=== PATIENT | male | born 1995 | race Asian ===

== ENCOUNTER 2018-05-01 18:47 | Emergency (ER) | payer BC ==
[~2018-05-01] VITALS: Ht 162.6 cm; Wt 70.3 kg
[2018-05-01 19:04] VITALS: BP 154/69
[2018-05-01] MEDS ORDERED: ACETAMINOPHEN 500 MG TABLET PO ONE (19:30)
[2018-05-01] MEDS ORDERED: DEXAMETHASONE 4 MG TABLET PO ONE (19:30)
[2018-05-01 19:44] LABS: INFLUENZA A PATIENT NEGATIVE (NEGATIVE); INFLUENZA B PATIENT NEGATIVE (NEGATIVE)
[2018-05-01] MEDS ORDERED: AMOX1TAB61 PO (20:07)
--- NOTE | 2018-05-01 20:07 | PHYS DOC ---
Past Medical History Past Medical History: No Pertinent History Past Surgical History: No Surgical History Alcohol Use: None Drug Use: None Adult General Chief Complaint Chief Complaint: SORE THROAT HPI HPI 23 year old male presents with report of sore throat, nasal congestion, and cough x 2-3 days. Reports associated subjective fever/chills. Denies known sick contact. Review of Systems Review of Systems Constitutional: Reports subjective fever and chills [] Eyes: Denies change in visual acuity, redness, or eye pain [] HENT: Reports nasal congestion and sore throat [] Respiratory: Reports cough; denies shortness of breath [] Cardiovascular: Denies chest pain or palpitations GI: Denies abdominal pain, nausea, vomiting, or diarrhea [] : Denies dysuria or hematuria [] Musculoskeletal: Denies back pain or joint pain [] Integument: Denies rash or skin lesions [] Neurologic: Denies headache, focal weakness or sensory changes [] Complete systems were reviewed and found to be within normal limits, except as documented in this note. Current Medications Current Medications Current Medications Medications (Trade) Dose Ordered Sig/Zuleima Start Time Stop Time Status Last Admin Dose Admin Acetaminophen (Tylenol) 500 mg 1X ONCE 05/01/18 19:30 05/01/18 19:31 DC 05/01/18 19:18 500 MG Dexamethasone (Decadron) 10 mg 1X ONCE 05/01/18 19:30 05/01/18 19:31 DC 05/01/18 19:18 10 MG Allergies Allergies Allergies Coded Allergies Type Severity Reaction Last Updated Verified No Known Drug Allergies 05/01/18 No Physical Exam Physical Exam Constitutional: Well developed, well nourished, no acute distress, non-toxic appearance. [] HENT: Normocephalic, atraumatic, bilateral TMs normal, oropharynx moist, no oral exudates, pharynx erythematous, nasal congestion noted Eyes: Conjunctiva normal, no discharge. [] Neck: Normal range of motion, no tenderness, supple, no meningeal signs Cardiovascular: Heart rate regular rhythm, no murmur [] Lungs & Thorax: Bilateral breath sounds clear to auscultation, no wheezing/ rales/rhonchi Skin: Warm, dry, no erythema, no rash. [] Extremities: No tenderness, ROM intact, no edema. [] Neurologic: Alert and oriented X 3, no focal deficits noted. [] Psychologic: Affect normal, judgement normal, mood normal. [] Current Patient Data Vital Signs Vital Signs Date Time Temp Pulse Resp B/P (MAP) Pulse Ox O2 Delivery O2 Flow Rate FiO2 05/01/18 19:04 100.6 104 16 154/69 (97) 96 Room Air 100.6 Lab Values Laboratory Tests Test 05/01/18 19:09 Influenza Type A Antigen Negative (NEGATIVE) Influenza Type B Antigen Negative (NEGATIVE) Group A Streptococcus Rapid Negative (NEGATIVE) EKG EKG [] Radiology/Procedures Radiology/Procedures [] Course & Med Decision Making Course & Med Decision Making Pertinent Lab studies reviewed. (See chart for details) Patient presents with sore throat and subjective fever/chills. Reports associated cough and nasal congestion. Rapid influenza negative. Rapid strep also negative. Fever addressed. Symptomatic treatment provided with oral steroid. Rx for empiric antibiotics given with instructions for watch and wait. Patient stable for discharge home with outpatient follow-up with PCP. Discussed findings and plan with patient, who acknowledges understanding and agreement. Dragon Disclaimer Dragon Disclaimer This electronic medical record was generated, in whole or in part, using a voice recognition dictation system. Departure Departure Impression: Primary Impression: Pharyngitis Disposition: 01 HOME, SELF-CARE Condition: STABLE Referrals: NO PCP (PCP) Patient Instructions: Viral and Bacterial Pharyngitis, [id number] Additional Instructions: Hold antibiotics for 48 hours. If symptoms worsen or for fever > 100.3 F after 48 hours then start antibiotics as prescribed. Scripts Amoxicillin/Potassium Clav (AUGMENTIN 875-125 TABLET) 1 Each Tablet 1 TAB PO BID, #14 TAB Prov: RENNY LEMOS DO 05/01/18 Problem Qualifiers Primary Impression: Pharyngitis Pharyngitis/tonsillitis etiology: unspecified etiology Qualified Codes: J02.9 - Acute pharyngitis, unspecified RENNY LEMOS DO May 01, 2018 20:07
== END 2018-05-01 20:23 | disposition home or self-care (01) ==
LOC: ER 18:47
DX: J02.9 Acute pharyngitis, unspecified (principal); R09.81 Nasal congestion
CPT/HCPCS: 87070; 87804; 87880; 99283; J8540

== ENCOUNTER 2018-10-31 10:13 | Emergency (ER) | payer BC ==
[~2018-10-31] VITALS: Ht 152.4 cm; Wt 68.0 kg
[~2018-10-31 10:13] MED LIST: AMOX1TAB61 PO
[2018-10-31] MEDS ORDERED: IV NORMAL SALINE 1000ML BAG 1,000 ML IV ONE (10:27)
[2018-10-31] MEDS ORDERED: METOCLOPRAMIDE 10 MG TABLET. PO ONE (10:30)
[2018-10-31] MEDS ORDERED: diphenhydrAMINE 50 MG/ML VIAL IVP ONE (10:30)
--- NOTE | 2018-10-31 10:50 | PHYS DOC ---
Past Medical History Past Medical History: No Pertinent History Past Surgical History: No Surgical History Alcohol Use: None Drug Use: None Adult General Chief Complaint Chief Complaint: HEADACHE HPI HPI 23-year-old male presenting the emergency department today with headache that is a throbbing moderate pain this started within the past 24 hours. He has felt subjective temperature at home however did not take his temperature. He is afebrile here. He took ibuprofen a few hours before coming in and his headache is improving currently. The pain is a nonradiating pain. He denies neck stiffness or nuchal rigidity. He denies any recent sick contacts. Immunizations are up-to-date. Review of systems is negative for vision changes numbness weakness or tingling of the extremities. He denies nuchal rigidity neck stiffness. He denies chest pain shortness of breath. He feels mildly nauseous did not vomit prior to arri santos. All other review of systems is negative. ED course: 23-year-old male presenting with a headache with subjective temperature at home. Patient has mild tachycardia here. Temperature 99.5. On examination normal range of motion and neck without nuchal rigidity. Negative Brudzinski's sign. Negative Kernig sign. Well-appearing individual. I ordered a CT of the head with blood work. Patient is refusing CAT scan. Patient received IV fluids with reglan and Benadryl. He is feeling better. I explained to him that his white blood cell count was elevated which can be a sign of infection. I requested to do the CAT scan and a lumbar puncture to exclude bacterial meningitis from the differential diagnosis. Patient understands the risk of disability chronic suffering and or comatose. He understands the risks and benefits of the procedure and is refusing to do anymore diagnostic testing at this time. He would like to sign out AMA. I offered alternatives including transfer to another facility or referral to another type of specialist for further investigation which patient refuses. The patient will sign out AMA to follow-up with his primary care physician as soon as possible. The patient has medical decision making capacity and understands. We will use a blue phone seismic interpreter to help explain reasons for testing better, but pt is refusing further care. Current Medications Current Medications Current Medications Medications (Trade) Dose Ordered Sig/Zuleima Start Time Stop Time Status Last Admin Dose Admin Diphenhydramine HCl (Benadryl) 25 mg 1X ONCE 10/31/18 10:30 10/31/18 10:31 DC 10/31/18 10:45 25 MG Metoclopramide HCl (Reglan) 10 mg 1X ONCE 10/31/18 10:30 10/31/18 10:31 DC 10/31/18 10:45 10 MG Sodium Chloride 1,000 ml @ 1,000 mls/hr Q1H ONCE 10/31/18 10:27 10/31/18 11:26 10/31/18 10:46 1,000 MLS/HR Allergies Allergies Allergies Coded Allergies Type Severity Reaction Last Updated Verified No Known Drug Allergies 05/01/18 No Physical Exam Physical Exam Constitutional: Well developed, well nourished, no acute distress, non-toxic appearance. [] HENT: Normocephalic, atraumatic, bilateral external ears normal, oropharynx moist, no oral exudates, nose normal. [] Eyes: PERRLA, EOMI, conjunctiva normal, no discharge. [] Neck: Normal range of motion, no tenderness, supple, no stridor. [] Cardiovascular: mild tachy, regular rhythm, no murmur [] Lungs & Thorax: Bilateral breath sounds clear to auscultation [] Abdomen: Bowel sounds normal, soft, no tenderness, no masses, no pulsatile masses. [] Skin: Warm, dry, no erythema, no rash. [] Back: No tenderness, no CVA tenderness. [] Extremities: No tenderness, no cyanosis, no clubbing, ROM intact, no edema. [] Neurologic: Alert and oriented X 3, normal motor function, normal sensory function, no focal deficits noted. [] Psychologic: Affect normal, judgement normal, mood normal. [] Current Patient Data Vital Signs Vital Signs Date Time Temp Pulse Resp B/P (MAP) Pulse Ox O2 Delivery O2 Flow Rate FiO2 10/31/18 10:20 99.5 105 18 131/76 (94) 97 99.5 Lab Values Laboratory Tests Test 10/31/18 10:35 White Blood Count 16.0 x10^3/uL (4.0-11.0) H Red Blood Count 5.66 x10^6/uL (4.30-5.70) Hemoglobin 16.0 g/dL (13.0-17.5) Hematocrit 46.8 % (39.0-53.0) Mean Corpuscular Volume 83 fL (79-100) Mean Corpuscular Hemoglobin 28 pg (25-35) Mean Corpuscular Hemoglobin Concent 34 g/dL (31-37) Red Cell Distribution Width 12.9 % (11.5-14.5) Platelet Count 152 x10^3/uL (140-400) Neutrophils (%) (Auto) 82 % (31-73) H Lymphocytes (%) (Auto) 10 % (24-48) L Monocytes (%) (Auto) 7 % (0-9) Eosinophils (%) (Auto) 0 % (0-3) Basophils (%) (Auto) 1 % (0-3) Neutrophils # (Auto) 13.2 x10^3/uL (1.8-7.7) H Lymphocytes # (Auto) 1.6 x10^3/uL (1.0-4.8) Monocytes # (Auto) 1.1 x10^3/uL (0.0-1.1) Eosinophils # (Auto) 0.0 x10^3/uL (0.0-0.7) Basophils # (Auto) 0.1 x10^3/uL (0.0-0.2) Platelet Estimate Pending Sodium Level 139 mmol/L (136-145) Potassium Level 3.5 mmol/L (3.5-5.1) Chloride Level 102 mmol/L (98-107) Carbon Dioxide Level 24 mmol/L (21-32) Anion Gap 13 (6-14) Blood Urea Nitrogen 14 mg/dL (8-26) Creatinine 1.1 mg/dL (0.7-1.3) Estimated GFR (Cockcroft-Gault) 81.6 BUN/Creatinine Ratio 13 (6-20) Glucose Level 122 mg/dL (70-99) H Calcium Level 8.8 mg/dL (8.5-10.1) Total Bilirubin 0.7 mg/dL (0.2-1.0) Aspartate Amino Transferase (AST) 21 U/L (15-37) Alanine Aminotransferase (ALT) 26 U/L (16-63) Alkaline Phosphatase 85 U/L (46-116) Total Protein 8.3 g/dL (6.4-8.2) H Albumin 3.9 g/dL (3.4-5.0) Albumin/Globulin Ratio 0.9 (1.0-1.7) L Laboratory Tests 10/31/18 10:35 Laboratory Tests 10/31/18 10:35 EKG EKG [] Radiology/Procedures Radiology/Procedures [] Course & Med Decision Making Course & Med Decision Making Pertinent Labs and Imaging studies reviewed. (See chart for details) [] Dragon Disclaimer Dragon Disclaimer This electronic medical record was generated, in whole or in part, using a voice recognition dictation system. Departure Departure Impression: Primary Impression: Headache Disposition: 07 AGAINST MEDICAL ADVICE Condition: GUARDED Referrals: NO PCP (PCP) Patient Instructions: General Headache Without Cause Additional Instructions: Thank you for allowing us to participate in your care today. Return to the emergency department you have any new or worsening symptoms, or if you are concerned for any reason. Return to emergency department if you have any new or concerning symptoms including but not limited to fever, chills, nausea, vomiting, intractable pain, any new rashes, chest pain, shortness of air, uncontrolled bleeding, difficulty breathing, and/or vision loss. Follow up with your primary care physician within 1-2 days. Call your Primary Doctor tomorrow and inform them of your visit today. If you do not have a primary care provider we are happy to provide you with a list of our primary care providers contact information. If at any time you change your mind and would like to continue investigation t ear headache you can return to the closest emergency department. This condition should be evaluated by your primary care physician and any recommended consulting services for continued management within 2 days after discharge. If at any time, you are having difficulty getting into your primary care doctor or a specialist, return to the emergency department. CRISTIAN LANDERS MD Oct 31, 2018 10:50
[2018-10-31 11:00] LABS: BASO # 0.1 x10^3/uL (0.0-0.2); BASO % 1 % (0-3); EOS % 0 % (0-3); HEMATOCRIT 46.8 % (39.0-53.0); LYMPH # 1.6 x10^3/uL (1.0-4.8); LYMPH % 10 % (24-48); MEAN CORPUSCULAR HEMOGLOBIN 28 pg (25-35); MEAN CORPUSCULAR HGB CONC 34 g/dL (31-37); MEAN CORPUSCULAR VOLUME 83 fL (79-100); MONO # 1.1 x10^3/uL (0.0-1.1); MONO % 7 % (0-9); NEUT # 13.2 x10^3/uL (1.8-7.7); NEUT % 82 % (31-73); PLATELET COUNT 152 x10^3/uL (140-400); RED BLOOD COUNT 5.66 x10^6/uL (4.30-5.70); RED CELL DISTRIBUTION WIDTH 12.9 % (11.5-14.5)
[2018-10-31 11:11] LABS: CALCIUM 8.8 mg/dL (8.5-10.1); CREATININE 1.1 mg/dL (0.7-1.3); GFR 81.6; POTASSIUM 3.5 mmol/L (3.5-5.1)
[2018-10-31 11:16] LABS: ALBUMIN 3.9 g/dL (3.4-5.0); ALBUMIN/GLOBULIN RATIO 0.9 (1.0-1.7); TOTAL BILIRUBIN 0.7 mg/dL (0.2-1.0); TOTAL PROTEIN 8.3 g/dL (6.4-8.2)
[2018-10-31 11:40] VITALS: BP 120/78
[2018-10-31 12:55] LABS: % BASOS 1 % (0-3); % LYMPHS 12 % (24-48); % MONOS 7 % (0-10); % SEGS 80 % (35-66); PLT ESTIMATE ADEQUATE (ADEQUATE)
== END 2018-10-31 11:45 | disposition left against medical advice (07) ==
LOC: ER 10:13
DX: R51 Headache (principal); R50.9 Fever, unspecified
CPT/HCPCS: 36415; 80053; 85007; 85025; 96374; 99285; J1200; J7030; J8597

== ENCOUNTER 2020-08-17 11:06 | Emergency (ER) | payer BC ==
[~2020-08-17] VITALS: Ht 162.6 cm; Wt 70.0 kg
[2020-08-17] MEDS ORDERED: IV NORMAL SALINE 1000ML BAG 1,000 ML IV SCH (11:30)
[2020-08-17] MEDS ORDERED: ONDANSETRON PF 4 MG/2 ML VIAL. IVP ONE (11:30)
[2020-08-17] MEDS ORDERED: IV NORMAL SALINE 1000ML BAG 1,000 ML IV ONE (11:30)
[2020-08-17] MEDS ORDERED: KETOROLAC 30 MG/ML VIAL. IVP ONE (11:30)
[2020-08-17] MEDS ORDERED: ACETAMINOPHEN 500 MG TABLET PO ONE (11:30)
--- NOTE | 2020-08-17 11:41 | PHYS DOC ---
Past Medical History Past Medical History: No Pertinent History Past Surgical History: No Surgical History Smoking Status: Never Smoker Alcohol Use: None Drug Use: None General Adult EDM: Chief Complaint: FEVER HPI: HPI: Patient is a 25 year old male who presents with 4 days of diarrhea, headache, fever, chills. Denies abdominal pain, chest pain, shortness of air, cough, recent travel, recent antibiotics, dizziness, headache, abdominal distention, urinary symptoms, back pain, vomiting, nausea. He states he last took Tylenol at 3:00 this morning he took ibuprofen at 2200 last night. Patient speaks Albanian. He has had both Covid shots but he cannot remember which one it was. He denies any past medical history. Review of Systems: Review of Systems: Constitutional: + fever or chills. [] Eyes: Denies change in visual acuity. [] HENT: Denies nasal congestion or sore throat. [] Respiratory: Denies cough or shortness of breath. [] Cardiovascular: Denies chest pain or edema. [] GI: Denies abdominal pain, nausea, vomiting, bloody stools or +diarrhea. [] : Denies dysuria. [] Musculoskeletal: Denies back pain or joint pain. [] Integument: Denies rash. [] Neurologic: +headache, denies focal weakness or sensory changes. [] Endocrine: Denies polyuria or polydipsia. [] Lymphatic: Denies swollen glands. [] Psychiatric: Denies depression or anxiety. [] Heart Score: C/O Chest Pain: No Risk Factors: Risk Factors: DM, Current or recent (<one month) smoker, HTN, HLP, family history of CAD, obesity. Risk Scores: Score 0 - 3: 2.5% MACE over next 6 weeks - Discharge Home Score 4 - 6: 20.3% MACE over next 6 weeks - Admit for Clinical Observation Score 7 - 10: 72.7% MACE over next 6 weeks - Early Invasive Strategies Current Medications: Current Medications Medications (Trade) Dose Ordered Sig/Zuleima Start Time Stop Time Status Last Admin Dose Admin Acetaminophen (Tylenol) 1,000 mg 1X ONCE 08/17/20 11:30 08/17/20 11:33 DC Ketorolac Tromethamine (Toradol 30mg Vial) 30 mg 1X ONCE 08/17/20 11:30 08/17/20 11:33 DC Ondansetron HCl (Zofran) 4 mg 1X ONCE 08/17/20 11:30 08/17/20 11:33 DC Sodium Chloride 1,000 ml @ 1,000 mls/hr 1X ONCE 08/17/20 11:30 08/17/20 12:29 Allergies: Allergies: Allergies Coded Allergies Type Severity Reaction Last Updated Verified No Known Drug Allergies 05/01/18 No Physical Exam: PE: Constitutional: Well developed, well nourished, no acute distress, non-toxic appearance. [] HENT: Normocephalic, atraumatic, bilateral external ears normal, oropharynx moist, no oral exudates, nose normal. [] Eyes: PERRLA, EOMI, conjunctiva normal, no discharge. [] Neck: Normal range of motion, no tenderness, supple, no stridor. [] Cardiovascular:Heart rate tachycardic regular rhythm, no murmur [] Lungs & Thorax: Bilateral breath sounds clear to auscultation [] Abdomen: Bowel sounds normal, soft, no tenderness, no masses, no pulsatile masses. [] Skin: Warm, dry, no erythema, no rash. [] Back: No tenderness, no CVA tenderness. [] Extremities: No tenderness, no cyanosis, no clubbing, ROM intact, no edema. [] Neurologic: Alert and oriented X 3, normal motor function, normal sensory function, no focal deficits noted. [] Psychologic: Affect normal, judgement normal, mood normal. [] EKG: EKG: [[address] Sánchez is sinus tachycardia no STEMI Radiology/Procedures: Radiology/Procedures: [] Impression: [facility] [address] [place], [place] [id number] IMAGING REPORT Signed PATIENT: ANA PEREZ ACCOUNT: [id number] : 1995 LOCATION: ER AGE: 25 SEX: M EXAM STATUS: REG ER ORD. PHYSICIAN: IBAN NEWTON APRN REASON: fever, tachycardia PROCEDURE: PORTABLE CHEST 1V INDICATION: Reason: fever, tachycardia / Spl. Instructions: / History: COMPARISON: None. FINDINGS: Single view of chest obtained. No focal airspace consolidation. Cardiomediastinal contour unremarkable. No acute osseous abnormality. IMPRESSION: * No focal airspace consolidation or edema. Electronically signed by: Sommer Dejesus MD (08/17/2020 12:14 PM) [id number] DICTATED and SIGNED BY: SOMMER DEJESUS MD DATE: 08/17/20 [id number] [facility] [address] [place] [address] IMAGING REPORT Signed PATIENT: ANA PEREZ ACCOUNT: [id number] : 1995 LOCATION: ER AGE: 25 SEX: M EXAM STATUS: REG ER ORD. PHYSICIAN: IBAN NEWTON APRN REASON: fever, diarrhea PROCEDURE: CT ABD PELV W/ IV CONTRST ONLY Exam: CT abdomen/pelvis with intravenous contrast Indication: Fever, diarrhea Comparison: None Technique: Helical CT imaging performed of the abdomen and pelvis after the intravenous administration of Omnipaque 300 contrast. Sagittal and coronal reformats were obtained. One or more of the following individualized dose reduction techniques were utilized for this examination: 1. Automated exposure control 2. Adjustment of the mA and/or kV according to patient size 3. Use of iterative reconstruction technique. Findings: There is mild motion artifact. Lower chest: Unremarkable. Liver: No focal liver lesion. Gallbladder/Biliary Tree: Normal. Pancreas: Normal. Spleen: Normal. Adrenal Glands: Normal. Kidneys/Ureters/Bladder: Normal. No hydronephrosis. Ureters and bladder are normal. Reproductive Organs: Normal. Stomach, small bowel, and colon: Stomach is normal. There is no small bowel obstruction. The appendix is normal. Motion artifact mildly limits evaluation of colon but there is no definite wall thickening or other acute abnormality. Vasculature: Abdominal aorta is normal in caliber. Lymph Nodes: There are multiple prominent mesenteric and retroperitoneal lymph nodes. For example, there is a prominent 1 cm short axis ileocolic lymph node (image 56, series 2). There are numerous small periaortic lymph nodes. Peritoneum and retroperitoneum: No free fluid or free air. Bones: No acute osseous abnormality. Impression: 1. No acute abnormality. 2. Multiple prominent mesenteric and retroperitoneal lymph nodes, greatest in the right lower quadrant. This is likely reactive, however follow-up CT of abd omen and pelvis could be obtained in 6 months to ensure stability. Electronically signed by: Nini Laughlin MD (08/17/2020 1:13 PM) [id number] DICTATED and SIGNED BY: NINI LAUGHLIN MD DATE: 08/17/20 [id number] 0 Course & Med Decision Making: Course & Med Decision Making Pertinent Labs and Imaging studies reviewed. (See chart for details) COVID-19 CRITERIA: The patient was evaluated during the global COVID-19 [facility], and that diagnosis was suspected/considered upon their initial presentation. Their evaluation, treatment and testing was consistent with current guidelines for patients who present with complaints or symptoms that may be related to COVID-19. See HPI. Alert and oriented x4. Panamanian speaking. Clip Wrapper phone is used. Speaks in full clear sentences. Skin pink warm and dry. He is tachycardic. His temp is 103. Lungs are clear to auscultate in all lobes. Abdomen is soft and nontender. Patient is given Toradol and Tylenol in the ED. He is given 2 L normal saline fluid. After fluid patient is still tachycardic. I have Covid tested in. I have also started Zosyn on the patient. I have ordered a stool culture. I had discussed admission with the patient and and his diagnosis. Patient states that he understands that he risk going home and dying and or disability. He states he understands his illness is severe. He states that he still wants to go home. He states that he will sign out AMA. Patient is still tachycardic. He has received Zosyn and 2 L of normal saline. I have spoken to Dr. Masters and he stated that he was going to come down and speak with the patient prior to the patient leaving. After Dr. Masters spoke to the patient the patient is still leaving AMA. [] Karly Disclaimer: Karly Disclaimer: This electronic medical record was generated, in whole or in part, using a voice recognition dictation system. COVID-19 Patient Risks: Age 65 or older: No Sign of co-morbidity: No Exp to person + for COVID: No Exp to PUI: No Travel from affected area: No Lower respiratory symptoms: No Fever: Yes Other: Yes (diarrhea) PPE Use: Full PPE with N95 mask or PAPR: Yes Date and Time of Reassessment Date: Aug 17, 2020 Time: 12:42 Fluid Challenge Is the fluid challenge complet: No IBW Target Volume Used: No BMI > 30: Yes Vital Signs Vital Signs: Vital Signs Date Time Temp Pulse Resp B/P (MAP) Pulse Ox O2 Delivery O2 Flow Rate FiO2 08/17/20 12:13 133 23 144/74 (97) 99 Room Air 08/17/20 11:09 103.2 103.2 Temperature Source: Oral Respirations Respiratory Effort: Normal, Non-Labored Respiratory Pattern: Normal Cardiovascular Pulse Rhythm: Regular Heart: Nml S1, S2, no murmurs Lung Sounds Breath Sounds: Clear Capillary Refil Capillary Refill: Rt Hand < 3 seconds Peripheral Pulse Pulse Location: Radial Pulse Strength: Normal (2+) Pulse Assessment Method: Monitor Integumentary Skin: Warm Skin Moisture: Dry Skin Turgor: Normal Skin Color: warm Fingernail Color: WNL Departure Departure Impression: Primary Impression: SIRS (systemic inflammatory response syndrome) Additional Impressions: Person under investigation for COVID-19 Diarrhea Qualified Codes: R19.7 - Diarrhea, unspecified Left against medical advice Disposition: LEFT AGAINST MEDICAL ADVICE Admitting Physician: HIMS Condition: STABLE Referrals: NO PCP (PCP) Patient Instructions: Diet for Diarrhea, Adult, Discharge Against Medical Advice, Fever Additional Instructions: Follow-up with your primary care doctor. Remember you have left AGAINST MEDICAL ADVICE. Take medication with food and as prescribed. Drink plenty of fluids. Take Tylenol or ibuprofen to help with your fever. Scripts Metronidazole (FLAGYL) 500 Mg Tablet 1 TAB PO BID, #14 TAB Prov: IBAN NEWTON APRN 08/17/20 Ciprofloxacin Hcl (CIPRO) 500 Mg Tablet 1 TAB PO BID for 10 Days, #20 TAB 0 Refills Prov: IBAN NEWTON APRN 08/17/20 IBAN NEWTON APRN Aug 17, 2020 11:41
[2020-08-17 12:09] LABS: BASO % 0 % (0-3); EOS % 0 % (0-3); HEMATOCRIT 45.4 % (39.0-53.0); HEMOGLOBIN 15.8 g/dL (13.0-17.5); LYMPH # 1.1 x10^3/uL (1.0-4.8); LYMPH % 7 % (24-48); MEAN CORPUSCULAR HEMOGLOBIN 29 pg (25-35); MEAN CORPUSCULAR HGB CONC 35 g/dL (31-37); MEAN CORPUSCULAR VOLUME 82 fL (79-100); MONO # 0.7 x10^3/uL (0.0-1.1); MONO % 4 % (0-9); NEUT # 14.7 x10^3/uL (1.8-7.7); NEUT % 89 % (31-73); PLATELET COUNT 135 x10^3/uL (140-400); RED BLOOD COUNT 5.53 x10^6/uL (4.30-5.70); RED CELL DISTRIBUTION WIDTH 12.5 % (11.5-14.5); WHITE BLOOD COUNT 16.6 x10^3/uL (4.0-11.0)
--- NOTE | 2020-08-17 12:17 | RAD ---
INDICATION: Reason: fever, tachycardia / Spl. Instructions: / History: COMPARISON: None. FINDINGS: Single view of chest obtained. No focal airspace consolidation. Cardiomediastinal contour unremarkable. No acute osseous abnormality. IMPRESSION: * No focal airspace consolidation or edema. Electronically signed by: Luisito Brunson MD (08/17/2020 12:14 PM) [id number]
[2020-08-17 12:24] LABS: CALCIUM 8.8 mg/dL (8.5-10.1); CREATININE 1.2 mg/dL (0.7-1.3); GFR 72.6; POTASSIUM 3.4 mmol/L (3.5-5.1)
[2020-08-17 12:27] LABS: TOTAL BILIRUBIN 0.5 mg/dL (0.2-1.0); TOTAL PROTEIN 8.2 g/dL (6.4-8.2)
[2020-08-17] MEDS ORDERED: IOHEXOL 300 MG/ML 100ML VIAL. IV ONE (12:30)
[2020-08-17] MEDS ORDERED: CONTRAST GIVEN. MC PRN (12:45)
[2020-08-17 12:49] LABS: % BANDS 3 % (0-9); % BASOS 1 % (0-3); % LYMPHS 10 % (24-48); % MONOS 4 % (0-10); % SEGS 82 % (35-66); PLT ESTIMATE ADEQUATE (ADEQUATE)
[2020-08-17] MEDS ORDERED: PIPERACILLIN/TAZOBACTAM 3.375 GM in IV NORMAL SALINE 50ML 50 ML IV ONE (13:00)
--- NOTE | 2020-08-17 13:16 | RAD ---
Exam: CT abdomen/pelvis with intravenous contrast Indication: Fever, diarrhea Comparison: None Technique: Helical CT imaging performed of the abdomen and pelvis after the intravenous administratio n of Omnipaque 300 contrast. Sagittal and coronal reformats were obtained. One or more of the following individualized dose reduction techniques were utilized for this examinat ion: 1. Automated exposure control 2. Adjustment of the mA and/or kV according to patient size 3. Use of iterative reconstruction technique. Findings: There is mild motion artifact. Lower chest: Unremarkable. Liver: No focal liver lesion. Gallbladder/Biliary Tree: Normal. Pancreas: Normal. Spleen: Normal. Adrenal Glands: Normal. Kidneys/Ureters/Bladder: Normal. No hydronephrosis. Ureters and bladder are normal. Reproductive Organs: Normal. Stomach, small bowel, and colon: Stomach is normal. There is no small bowel obstruction. The appendix is normal. Motion artifact mildly limits evaluation of colon but there is no definite wall thickenin g or other acute abnormality. Vasculature: Abdominal aorta is normal in caliber. Lymph Nodes: There are multiple prominent mesenteric and retroperitoneal lymph nodes. For example, th ere is a prominent 1 cm short axis ileocolic lymph node (image 56, series 2). There are numerous smal l periaortic lymph nodes. Peritoneum and retroperitoneum: No free fluid or free air. Bones: No acute osseous abnormality. Impression: 1. No acute abnormality. 2. Multiple prominent mesenteric and retroperitoneal lymph nodes, greatest in the right lower quadra nt. This is likely reactive, however follow-up CT of abdomen and pelvis could be obtained in 6 months to ensure stability. Electronically signed by: Nini Laughlin MD (08/17/2020 1:13 PM) [id number]
[2020-08-17 13:58] LABS: BILIRUBIN,URINE NEGATIVE (NEG); CLARITY,URINE CLEAR; COLOR,URINE YELLOW; NITRITE,URINE NEGATIVE (NEG); PROTEIN,URINE NEGATIVE (NEG-TRACE); UROBILINOGEN,URINE 0.2 mg/dL (0.2 mg/dL)
--- NOTE | 2020-08-17 14:04 | PDOC1 ---
History and Physical Date of Admission Date of Admission DATE: 08/17/20 TIME: 14:03 Identification/Chief Complaint Chief Complaint COUGH, DIARRHEA, PUI History of Present Illness History of Present Illness 25 year old male who presents with 4 days of diarrhea, headache, fever, chills. Denies abdominal pain, chest pain, shortness of air, cough, recent travel, recent antibiotics, dizziness, headache, abdominal distention, urinary symptoms, back pain, vomiting, nausea. He states he last took Tylenol at 3:00 this morning he took ibuprofen at 2200 last night. Patient speaks Mongolian. He has had both Covid shots but he cannot remember which one it was. He denies any past medical history. Past Medical History Past Medical History Past Medical History Past Medical History Past Medical History: No Pertinent History Past Surgical History: No Surgical History Smoking Status: Never Smoker Alcohol Use: None Drug Use: None FHX HTN Psych: No pertinent hx Infectious disease: No pertinent hx Renal/: No pertinent hx Family History Family History: Hypertension Social History Smoke: No ALCOHOL: none Drugs: None Current Problem List Problem List Problems Medical Problems: (1) Diarrhea Status: Acute (2) Person under investigation for COVID-19 Status: Acute (3) SIRS (systemic inflammatory response syndrome) Status: Acute Current Medications Current Medications Current Medications Sodium Chloride 1,000 ml @ 1,000 mls/hr Q1H IV Last administered on 08/17/20at 12:07; Start 08/17/20 at 11:30; Stop 08/17/20 at 12:29; Status DC Ondansetron HCl (Zofran) 4 mg 1X ONCE IVP Last administered on 08/17/20at 12:06; Start 08/17/20 at 11:30; Stop 08/17/20 at 11:33; Status DC Sodium Chloride 1,000 ml @ 1,000 mls/hr 1X ONCE IV Last administered on 08/17/20at 12:07; Start 08/17/20 at 11:30; Stop 08/17/20 at 12:29; Status DC Ketorolac Tromethamine (Toradol 30mg Vial) 30 mg 1X ONCE IVP Last administered on 08/17/20at 12:06; Start 08/17/20 at 11:30; Stop 08/17/20 at 11:33; Status DC Acetaminophen (Tylenol) 1,000 mg 1X ONCE PO Last administered on 08/17/20at 12:08; Start 08/17/20 at 11:30; Stop 08/17/20 at 11:33; Status DC Iohexol (Omnipaque 300 Mg/ml) 75 ml 1X ONCE IV Last administered on 08/17/20at 12:46; Start 08/17/20 at 12:30; Stop 08/17/20 at 12:32; Status DC Info (CONTRAST GIVEN -- Rx MONITORING) 1 each PRN DAILY PRN MC SEE COMMENTS; Start 08/17/20 at 12:45; Stop 08/19/20 at 12:44 Piperacillin Sod/ Tazobactam Sod 3.375 gm/Sodium Chloride 50 ml @ 100 mls/hr 1X ONCE IV Last administered on 08/17/20at 13:40; Start 08/17/20 at 13:00; Stop 08/17/20 at 13:29; Status DC Active Scripts Active Augmentin 875-125 Tablet (Amoxicillin/Potassium Clav) 1 Each Tablet 1 Tab PO BID Allergies Allergies: Coded Allergies: No Known Drug Allergies (Unverified , 05/01/18) ROS General: YES: Fatigue; No: Chills, Night Sweats, Malaise, Appetite, Other PSYCHOLOGICAL ROS: No: Anxiety, Behavioral Disorder, Concentration difficultie, Decreased libido, Depression, Disorientation, Hallucinations, Hostility, Irritablity, Memory difficulties, Mood Swings, Obsessive thoughts, Physical abuse, Sexual abuse, Sleep disturbances, Suicidal ideation, Other Eyes: No Blurry vision, No Decreased vision, No Double vision, No Dry eyes, No Excessive tearing, No Eye Pain, No Itchy Eyes, No Loss of vision, No Photophobia, No Scotomata, No Uses contacts, No Uses glasses, No Other HEENT: No: Heacaches, Visual Changes, Hearing change, Nasal congestion, Nasal discharge, Oral lesions, Sinus pain, Sore Throat, Epistaxis, Sneezing, Snoring, Tinnitus, Vertigo, Vocal changes, Other ALLERGY AND IMMUNOLOGY: No: Hives, Insect Bite Sensitivity, Itchy/Watery Eyes, Nasal Congestion, Post Nasal Drip, Seasonal Allergies, Other Hematological and Lymphatic: No: Bleeding Problems, Blood Clots, Blood Transfusions, Brusing, Night Sweats, Pallor, Swollen Lymph Nodes, Other ENDOCRINE: No: Breast Changes, Galactorrhea, Hair Pattern Changes, Hot Flashes, Malaise/lethargy, Mood Swings, Palpitations, Polydipsia/polyuria, Skin Changes, Temperature Intolerance, Unexpected Weight Changes, Other Breast: No New/Changing Breast Lumps, No Nipple changes, No Nipple discharge, No Other Respiratory: No: Cough, Hemoptysis, Orthopnea, Pleuritic Pain, Shortness of breath, SOB with excertion, Sputum Changes, Stridor, Tachypnea, Wheezing, Other Cardiovascular: No Chest Pain, No Palpitations, No Orthopnea, No Paroxysmal Noc. Dyspnea, No Edema, No Lt Headedness, No Other Gastrointestinal: Yes Nausea, Yes Vomiting; No Abdominal Pain, No Diarrhea, No Constipation, No Melena, No Hematochezia, No Other Genitourinary: No Dysuria, No Frequency, No Incontinence, No Hematuria, No Retention, No Discharge, No Urgency, No Pain, No Flank Pain, No Other, No , No , No , No , No , No , No Musculoskeletal: No Gait Disturbance, No Joint Pain, No Joint Stiffness, No Joint Swelling, No Muscle Pain, No Muscular Weakness, No Pain In:, No Swelling In:, No Other Neurological: No Behavorial Changes, No Bowel/Bladder ControlChng, No Confusion, No Dizziness, No Gait Disturbance, No Headaches, No Impaired Coord/balance, No Memory Loss, No Numbness/Tingling, No Seizures, No Speech Problems, No Tremors, No Visual Changes, No Weakness, No Other Skin: No Dry Skin, No Eczema, No Hair Changes, No Lumps, No Mole Changes, No Mottling, No Nail Changes, No Pruritus, No Rash, No Skin Lesion Changes, No Other, No Acne Physical Exam General: Alert, Oriented X3, Cooperative, No acute distress HEENT: PERRLA, EOMI, Mucous membr. moist/pink Lungs: Clear to auscultation, Normal air movement Heart: RRR, no thrills, no jug vein distention Breasts: Not examined Abdomen: Normal bowel sounds, Soft Rectal Exam: not examined PELVIC: Examination not indicated Extremities: No cyanosis Neuro: Normal speech, Strength at 5/5 X4 ext, Sensation intact, Cranial nerves 3-12 NL Psych/Mental Status: Mental status NL, Mood NL Vitals Vitals Vital Signs Date Time Temp Pulse Resp B/P (MAP) Pulse Ox O2 Delivery O2 Flow Rate FiO2 08/17/20 13:18 99.3 129 24 108/59 (75) 97 Room Air 99.3 Labs Labs Laboratory Tests Test 08/17/20 11:45 White Blood Count 16.6 x10^3/uL (4.0-11.0) Red Blood Count 5.53 x10^6/uL (4.30-5.70) Hemoglobin 15.8 g/dL (13.0-17.5) Hematocrit 45.4 % (39.0-53.0) Mean Corpuscular Volume 82 fL (79-100) Mean Corpuscular Hemoglobin 29 pg (25-35) Mean Corpuscular Hemoglobin Concent 35 g/dL (31-37) Red Cell Distribution Width 12.5 % (11.5-14.5) Platelet Count 135 x10^3/uL (140-400) Neutrophils (%) (Auto) 89 % (31-73) Lymphocytes (%) (Auto) 7 % (24-48) Monocytes (%) (Auto) 4 % (0-9) Eosinophils (%) (Auto) 0 % (0-3) Basophils (%) (Auto) 0 % (0-3) Neutrophils # (Auto) 14.7 x10^3/uL (1.8-7.7) Lymphocytes # (Auto) 1.1 x10^3/uL (1.0-4.8) Monocytes # (Auto) 0.7 x10^3/uL (0.0-1.1) Eosinophils # (Auto) 0.0 x10^3/uL (0.0-0.7) Basophils # (Auto) 0.0 x10^3/uL (0.0-0.2) Segmented Neutrophils % 82 % (35-66) Band Neutrophils % 3 % (0-9) Lymphocytes % 10 % (24-48) Monocytes % 4 % (0-10) Basophils % 1 % (0-3) Platelet Estimate Adequate (ADEQUATE) Sodium Level 137 mmol/L (136-145) Potassium Level 3.4 mmol/L (3.5-5.1) Chloride Level 102 mmol/L (98-107) Carbon Dioxide Level 25 mmol/L (21-32) Anion Gap 10 (6-14) Blood Urea Nitrogen 12 mg/dL (8-26) Creatinine 1.2 mg/dL (0.7-1.3) Estimated GFR (Cockcroft-Gault) 72.6 BUN/Creatinine Ratio 10 (6-20) Glucose Level 185 mg/dL (70-99) Lactic Acid Level 2.4 mmol/L (0.4-2.0) Calcium Level 8.8 mg/dL (8.5-10.1) Total Bilirubin 0.5 mg/dL (0.2-1.0) Aspartate Amino Transf (AST/SGOT) 22 U/L (15-37) Alanine Aminotransferase (ALT/SGPT) 37 U/L (16-63) Alkaline Phosphatase 94 U/L (46-116) Troponin I Quantitative < 0.017 ng/mL (0.000-0.055) Total Protein 8.2 g/dL (6.4-8.2) Albumin 4.0 g/dL (3.4-5.0) Albumin/Globulin Ratio 1.0 (1.0-1.7) Lipase 59 U/L (73-393) Laboratory Tests Test 08/17/20 11:45 White Blood Count 16.6 x10^3/uL (4.0-11.0) Red Blood Count 5.53 x10^6/uL (4.30-5.70) Hemoglobin 15.8 g/dL (13.0-17.5) Hematocrit 45.4 % (39.0-53.0) Mean Corpuscular Volume 82 fL (79-100) Mean Corpuscular Hemoglobin 29 pg (25-35) Mean Corpuscular Hemoglobin Concent 35 g/dL (31-37) Red Cell Distribution Width 12.5 % (11.5-14.5) Platelet Count 135 x10^3/uL (140-400) Neutrophils (%) (Auto) 89 % (31-73) Lymphocytes (%) (Auto) 7 % (24-48) Monocytes (%) (Auto) 4 % (0-9) Eosinophils (%) (Auto) 0 % (0-3) Basophils (%) (Auto) 0 % (0-3) Neutrophils # (Auto) 14.7 x10^3/uL (1.8-7.7) Lymphocytes # (Auto) 1.1 x10^3/uL (1.0-4.8) Monocytes # (Auto) 0.7 x10^3/uL (0.0-1.1) Eosinophils # (Auto) 0.0 x10^3/uL (0.0-0.7) Basophils # (Auto) 0.0 x10^3/uL (0.0-0.2) Segmented Neutrophils % 82 % (35-66) Band Neutrophils % 3 % (0-9) Lymphocytes % 10 % (24-48) Monocytes % 4 % (0-10) Basophils % 1 % (0-3) Platelet Estimate Adequate (ADEQUATE) Sodium Level 137 mmol/L (136-145) Potassium Level 3.4 mmol/L (3.5-5.1) Chloride Level 102 mmol/L (98-107) Carbon Dioxide Level 25 mmol/L (21-32) Anion Gap 10 (6-14) Blood Urea Nitrogen 12 mg/dL (8-26) Creatinine 1.2 mg/dL (0.7-1.3) Estimated GFR (Cockcroft-Gault) 72.6 BUN/Creatinine Ratio 10 (6-20) Glucose Level 185 mg/dL (70-99) Lactic Acid Level 2.4 mmol/L (0.4-2.0) Calcium Level 8.8 mg/dL (8.5-10.1) Total Bilirubin 0.5 mg/dL (0.2-1.0) Aspartate Amino Transf (AST/SGOT) 22 U/L (15-37) Alanine Aminotransferase (ALT/SGPT) 37 U/L (16-63) Alkaline Phosphatase 94 U/L (46-116) Troponin I Quantitative < 0.017 ng/mL (0.000-0.055) Total Protein 8.2 g/dL (6.4-8.2) Albumin 4.0 g/dL (3.4-5.0) Albumin/Globulin Ratio 1.0 (1.0-1.7) Lipase 59 U/L (73-393) Images Images Exam: CT abdomen/pelvis with intravenous contrast Indication: Fever, diarrhea Comparison: None Technique: Helical CT imaging performed of the abdomen and pelvis after the intravenous administration of Omnipaque 300 contrast. Sagittal and coronal reformats were obtained. One or more of the following individualized dose reduction techniques were utilized for this examination: 1. Automated exposure control 2. Adjustment of the mA and/or kV according to patient size 3. Use of iterative reconstruction technique. Findings: There is mild motion artifact. Lower chest: Unremarkable. Liver: No focal liver lesion. Gallbladder/Biliary Tree: Normal. Pancreas: Normal. Spleen: Normal. Adrenal Glands: Normal. Kidneys/Ureters/Bladder: Normal. No hydronephrosis. Ureters and bladder are normal. Reproductive Organs: Normal. Stomach, small bowel, and colon: Stomach is normal. There is no small bowel obstruction. The appendix is normal. Motion artifact mildly limits evaluation of colon but there is no definite wall thickening or other acute abnormality. Vasculature: Abdominal aorta is normal in caliber. Lymph Nodes: There are multiple prominent mesenteric and retroperitoneal lymph nodes. For example, there is a prominent 1 cm short axis ileocolic lymph node (image 56, series 2). There are numerous small periaortic lymph nodes. Peritoneum and retroperitoneum: No free fluid or free air. Bones: No acute osseous abnormality. Impression: 1. No acute abnormality. 2. Multiple prominent mesenteric and retroperitoneal lymph nodes, greatest in the right lower quadrant. This is likely reactive, however follow-up CT of abdomen and pelvis could be obtained in 6 months to ensure stability. Electronically signed by: Nini Laughlin MD (08/17/2020 1:13 PM) [id number] DICTATED and SIGNED BY: NINI LAUGHLIN MD DATE: 08/17/20 [id number] VTE Prophylaxis Ordered VTE Prophylaxis Devices: Yes VTE Pharmacological Prophylaxi: Yes Assessment/Plan Assessment/Plan IMPRESSION Nausea and diarrhea, improving PUI LEUKOCYTOSIS HYPOKALEMIA PLAN ADMIT REFUSED AMA LEFT AMA D/W ER Justifications for Admission Other Justification OMAR BARRON MD Aug 17, 2020 14:04
[2020-08-17 14:09] LABS: BACTERIA,URINE 0 /HPF (0-FEW); RBC,URINE 0 /HPF (0-2); WBC,URINE 0 /HPF (0-4)
[2020-08-17] MEDS ORDERED: ACETAMINOPHEN 325 MG TABLET. PO PRN (14:15)
[2020-08-17] MEDS ORDERED: ONDANSETRON PF 4 MG/2 ML VIAL. IV PRN (14:15)
[2020-08-17] MEDS ORDERED: METR500T PO (14:40)
[2020-08-17] MEDS ORDERED: CIPR500T94 PO (14:40)
[2020-08-17 14:48] VITALS: BP 125/61
--- NOTE | 2020-08-17 17:01 | EKG ---
[facility] [address] [place] [address] Test Date: 2020-08-17 Test Time: 12:10:22 Pat Name: ANA PEREZ Department: Room: Gender: M [employer]: : 1995 Requested By: IBAN NEWTON Order Number: [id number] Reading MD: Measurements Intervals [place] Rate: 135 P: 19 NM: 118 QRS: 53 QRSD: 80 T: 29 QT: 284 QTc: 430 Interpretive Statements SINUS TACHYCARDIA NO SPECIFIC ECG ABNORMALITIES RI6.02 No previous ECG available for comparison
--- NOTE | 2020-08-20 15:43 | NUR ---
IP: Attemtped to contact pt concerning covid results. No answer, left a voicemail to return the call.
--- NOTE | 2020-08-21 10:27 | NUR ---
IP: Informed pt of negative covid test. Pt verbalized understanding.
== END 2020-08-17 15:10 | disposition left against medical advice (07) ==
LOC: ER 11:06
DX: R19.7 Diarrhea, unspecified (principal); R65.10 Systemic inflammatory response syndrome (SIRS) of non-infectious origin without acute organ dysfunction; Z20.822 Contact with and (suspected) exposure to COVID-19
CPT/HCPCS: 36415; 71045; 74177; 80053; 81001; 83605; 83690; 84484; 85007; 85025; 93005; 96361; 96365; 96375; 99285; J1885; J2405; J2543; J7030; Q9967; U0003

== ENCOUNTER 2021-03-01 17:16 | Emergency (ER) | payer BC ==
[~2021-03-01 17:16] MED LIST changes: +CIPR500T94 PO; +METR500T PO
== END 2021-03-01 18:15 | disposition left against medical advice (07) ==
LOC: ER 17:16
DX: R50.9 Fever, unspecified (principal); Z53.21 Procedure and treatment not carried out due to patient leaving prior to being seen by health care provider